=== PATIENT | female | born 1980 | race Caucasian/White ===

== ENCOUNTER 2016-08-23 06:58 | Inpatient (IN) | payer OTHER ==
[~2016-08-23] VITALS: Ht 154.9 cm; Wt 65.0 kg
--- NOTE | 2016-08-23 06:53 | PREOP HP ---
DATE OF SERVICE: 08/20/2016 PRINCIPAL DIAGNOSIS AND REASON FOR HER SURGERY: Left neck carotid body tumor. HISTORY OF PRESENT ILLNESS: This is a 36-year-old female who saw me about a month ago with a diagnosis of left carotid body tumor. A CT scan done at [place] showed a 4.5 x 3.5 x 2.5 left carotid body tumor. She has had no symptoms from that other than noticing the lump and she is admitted at this time for excision of the left carotid body tumor. MEDICATIONS: None. PAST SURGICAL HISTORY: No prior operations. PAST MEDICAL HISTORY: Negative. ALLERGIES: TYLENOL. REVIEW OF SYSTEMS: Only positive for history of smoking, nondiabetic. PHYSICAL EXAMINATION: GENERAL: Pleasant female in no acute distress. EXTREMITIES: 2+ carotids with a lump on the left neck. CARDIOVASCULAR: Regular heart rate. LUNGS: Chest is clear. NEUROLOGIC: She is neurologically intact. IMPRESSION: Left neck carotid body tumor. PLAN: Excision of the left neck carotid body tumor under general anesthetic. The nature of the procedure, the risk of bleeding, infection, nerve injury were discussed with the patient and she is agreeable to proceed. SADIE ELIZABETH MD DR: ALY/phil JOB#: [id number] / [id number]
[~2016-08-23 06:58] MED LIST: CEFAZOLIN 2GM PREMIX 50 ML IV PRN; CEFAZOLIN SODIUM 1 GM in IV NORMAL SALINE 500ML BAG 500 ML IRR ONE; HEPARIN S0DIUM 5,000 UNIT in IV RINGERS,LACTATED 500ML 500 ML IRR ONE
[2016-08-23] MEDS ORDERED: CEFAZOLIN PREMIX 2 GM/50 ML BAG. IV ONE (07:00)
[2016-08-23] MEDS ORDERED: ONDANSETRON PF 4 MG/2 ML VIAL. IV PRN ×2 (07:00→08:30)
[2016-08-23] MEDS ORDERED: PROCHLORPERAZINE 10 MG/2 ML VIAL. IV PRN (07:00)
[2016-08-23] MEDS ORDERED: LIDOCAINE 1% 1 ML SYRINGE. ID PRN (07:00)
[2016-08-23] MEDS ORDERED: IV RINGERS,LACTATED 1000ML 1,000 ML IV SCH (07:00)
[2016-08-23] MEDS ORDERED: MORPHINE SULFATE 2 MG/ML DISP.SYRIN. IV PRN (07:00)
[2016-08-23] MEDS ORDERED: HYDROMORPHONE 2 MG/ML VIAL. IV PRN (07:00)
[2016-08-23] MEDS ORDERED: LIDOCAINE 1% PF 30 ML VIAL. ONE (07:04)
[2016-08-23] MEDS ORDERED: SURGICEL FIBRILLAR 1X2 EACH. ONE (07:04)
[2016-08-23 07:33] LABS: NEG OBC UR NEG; POS OBC UR POS
[2016-08-23 07:35] LABS: BASO # 0.1 x10^3/uL (0.0-0.2); BASO % 1 % (0-3); EOS % 4 % (0-3); HEMATOCRIT 42.4 % (36.0-47.0); HEMOGLOBIN 14.3 g/dL (12.0-15.5); LYMPH # 3.1 x10^3/uL (1.0-4.8); LYMPH % 37 % (24-48); MEAN CORPUSCULAR HEMOGLOBIN 30 pg (25-35); MEAN CORPUSCULAR HGB CONC 34 g/dL (31-37); MEAN CORPUSCULAR VOLUME 88 fL (79-100); MONO % 10 % (0-9); NEUT % 48 % (31-73); PLATELET COUNT 279 x10^3/uL (140-400); RED BLOOD COUNT 4.83 x10^6/uL (3.50-5.40); RED CELL DISTRIBUTION WIDTH 13.1 % (11.5-14.5); WHITE BLOOD COUNT 8.4 x10^3/uL (4.0-11.0)
[2016-08-23 07:43] LABS: CALCIUM 8.9 mg/dL (8.5-10.1); CREATININE 0.8 mg/dL (0.6-1.0); GFR 82.1
[2016-08-23 07:46] LABS: PROTHROMBIN TIME PATIENT 12.6 SEC (11.7-14.0)
[2016-08-23] MEDS ORDERED: FENTANYL PF 100 MCG/2 ML VIAL. ONE (08:02)
[2016-08-23] MEDS ORDERED: LIDOCAINE 2% 100 MG/5 ML DISP.SYRIN. ONE (08:03)
[2016-08-23] MEDS ORDERED: ROCURONIUM 50 MG/5 ML VIAL. ONE (08:03)
[2016-08-23] MEDS ORDERED: DESFLURANE > 120 MINUTES IH ONE (08:03)
[2016-08-23] MEDS ORDERED: REMIFENTANIL 2 MG VIAL. IV ONE (08:03)
[2016-08-23] MEDS ORDERED: MIDAZOLAM HCL 2 MG/2 ML VIAL. ONE (08:03)
[2016-08-23] MEDS ORDERED: PROPOFOL 20 ML IV ONE (08:03)
[2016-08-23] MEDS ORDERED: DEXAMETHASONE SOD PHOS 20 MG/5 ML VIAL. ONE (08:04)
[2016-08-23] MEDS ORDERED: PROPOFOL 50 ML IV ONE ×2 (08:04→09:34)
[2016-08-23] MEDS ORDERED: ONDANSETRON PF 4 MG/2 ML VIAL. ONE (08:04)
[2016-08-23] MEDS ORDERED: NICARDIPINE HCL 25 MG/10 ML VIAL. IV ONE (08:06)
[2016-08-23] MEDS ORDERED: 0.9 % SODIUM CHLORIDE 10 ML DISP.SYRIN. IV PRN (08:30)
[2016-08-23] MEDS ORDERED: EPHEDRINE SULFATE 50 MG/ML VIAL. ONE (08:37)
[2016-08-23] MEDS ORDERED: EPHEDRINE PF IN SALINE 50 MG/5 ML DISP.SYRIN. IV ONE (08:42)
[2016-08-23] MEDS ORDERED: HEPARIN for IV BOLUS 10,000 UNIT/10 ML VIAL. ONE (08:43)
[2016-08-23] MEDS ORDERED: PHENYLEPHRINE in 0.9% NACL PF 1 MG/10 ML DISP.SYRIN. IV ONE (09:08)
--- NOTE | 2016-08-23 11:06 | PDOC ---
BRIEF OPERATIVE NOTE Date: Aug 23, 2016 Pre-Op Diagnosis Lt carotid body tumor Post-Op Diagnosis Same Procedure Performed Excision of lt carotid body tumor Surgeon Noel Larsen Anesthesia Type: General Blood Loss 400 Specimens Obtained Lt carotid body tumor Findings Large tumor Complications none SADIE LARSEN MD Aug 23, 2016 11:06
[2016-08-23] MEDS ORDERED: MORPHINE SULFATE 2 MG/ML DISP.SYRIN. IV ONE (11:15)
[2016-08-23] MEDS ORDERED: TRAMADOL 50 MG TABLET. PO PRN (11:15)
[2016-08-23] MEDS: FENTANYL PF 100 MCG/2 ML VIAL. IV PRN ×5 (11:16→19:25)
[2016-08-23 13:00] VITALS: BP 119/86
--- NOTE | 2016-08-23 13:29 | OP ---
DATE OF SURGERY: 08/23/2016 PREOPERATIVE DIAGNOSIS: Left neck carotid body tumor. POSTOPERATIVE DIAGNOSIS: Left neck carotid body tumor. PROCEDURE PERFORMED: Excision of left neck carotid body tumor. SURGEON: Abdiel Larsen MD. ANESTHETIC: General. INDICATIONS: This is a 36-year-old female with a left neck carotid body tumor. FINDINGS: This tumor obviously originated at the bifurcation area and there was a finger in that bifurcation that was fairly huge and then a larger finger that went alongside the internal carotid artery more distal in the neck posterolaterally. DESCRIPTION OF PROCEDURE: After general endotracheal anesthetic, prepping and draping, incision was made on the anterior border of the left sternocleidomastoid muscle, carried through platysma with cautery, bleeding controlled with cautery. Even after getting through the platysma layers, there started be fairly significant vascularity to all the tissue and crossing veins. The common carotid artery was identified, dissected out and encircled with a vessel loop, but in doing so, there was a lot of adventitial venous bleeding that had to be controlled with cautery or Hemoclips. Dissection was then continued more cephalad. The anterior facial vein divided between silk ties and then we began to see the extent of the tumor. We initiated fairly careful dissection for a while. The hypoglossal nerve was identified and this was preserved. The external carotid artery was identified, dissected out, encircled with vessel loop. This was then retracted medially to hopefully open up. The dissection was then ____ laterally at first. Again, considerable bleeding along the edges of the tumor because of its vascularity. Eventually, with blunt dissection, we were able to get around posteriorly and then laterally. I was able to dissect it off with blunt and sharp dissection and cautery dissection out of the bifurcation of the carotid arteries preserving both of course. Once the tumor was removed from the bifurcation area, the only residual area was the finger that went up very proximally and after retracting underneath the hypoglossal nerve, which was preserved in the digastric muscle, blunt dissection, we were able to get the tumor out from up there. Bleeding after that was controlled with either 6-0 Prolene suture ligatures or pressure or Fibrillar Surgicel and the cautery. The wound was irrigated profusely with Ancef solution. Some Fibrillar Surgicel packed around suture lines and hemostasis to be pretty good after some Fibrillar Surgicel and pressure. Then the area was irrigated one more time. Some fresh Fibrillar Surgicel packed up there. A 7 mm Omid-Sanon drain placed into the wound and brought through a separate stab incision. Incision was then closed with running 2-0 Vicryl for the platysma, subcuticular 4-0 Vicryl, Mastisol, Steri-Strips, sterile dressings were applied. The patient tolerated the procedure well and left the operating room in stable condition. ESTIMATED BLOOD LOSS: 400 mL. ABDIEL LARSEN MD DR: ALY/phil JOB#: [id number] / [id number]
[2016-08-23] MEDS: OXYCODONE IR 5 MG TABLET. PO PRN ×2 (13:44→19:24)
[2016-08-23 14:00] VITALS: BP 102/53
[2016-08-23 15:00] VITALS: BP 111/52
[2016-08-23] MEDS: IV NORMAL SALINE 1000ML BAG 1,000 ML IV SCH (15:30)
[2016-08-23 19:00] VITALS: BP 115/62
[2016-08-23 23:00] VITALS: BP 103/63
[2016-08-24] MEDS: OXYCODONE IR 5 MG TABLET. PO PRN ×2 (00:11→05:23)
[2016-08-24] MEDS: FENTANYL PF 100 MCG/2 ML VIAL. IV PRN ×2 (00:12→05:24)
[2016-08-24] MEDS: IV NORMAL SALINE 1000ML BAG 1,000 ML IV SCH ×2 (00:39→04:29)
[2016-08-24 03:00] VITALS: BP 106/57
--- NOTE | 2016-08-24 06:09 | PDOC ---
Provider Note Provider Note POD # 1 Post op excision of lt neck carotid body tumor Some incisional pain Minimal swelling , drain removed, slight weakness lt corner of mouth and numbness, weak voice Imp: Stable after removal of a large lt carotid body tumor Trauma ( during dissection ) but not transection of vagus, marginal mandibular , and hypoglossal nerve, all should recover with time Plan; Discharge home today SADIE ELIZABETH MD Aug 24, 2016 06:09
--- NOTE | 2016-08-24 06:11 | DISCH ---
DISCHARGE INSTRUCTIONS Condition on Discharge Condition on Discharge: Stable Activity After Discharge Activity Instructions for Disc: Resume previous activity Driving Instructions after Dis: Do not drive today Diet after Discharge Diet after Discharge: Cardiac Diet Texture: Regular Wound Incision Care Wound/Incision Care: Ice to area for comfort, Keep wound elevated, May get incision wet Contacting the DRBranden after DC Call your doctor for: Fever greater than 100 Follow-Up Follow up with: Noel Larsen [phone] in 10 days SADIE LARSEN MD Aug 24, 2016 06:11
--- NOTE | 2016-08-24 07:08 | DS ---
DATE OF DISCHARGE: 08/24/2016 PRINCIPAL DIAGNOSIS: Left carotid body tumor. OPERATION PERFORMED: On 08/23/2016, excision of left carotid body tumor. HISTORY OF PRESENT ILLNESS: This is a 36-year-old female with carotid body tumor on the left neck for excision. HOSPITAL COURSE: On the day of admission, she underwent general anesthetic for excision of what was found to be a very large left carotid body tumor which originated at the bifurcation of the left carotid arteries, but this tumor also extended posteriorly and laterally along the internal carotid artery well up underneath the digastric muscle anterior to the vagus nerve. The dissection was considerable, blunt dissection to remove the tumor. During the operation, the hypoglossal nerve was seen and preserved. She was observed overnight in the ICU because there were no beds on telemetry. The following morning, the vital signs were stable. She was awake and alert, voice was a little weak. She had slight weakness of the left corner of the mouth and she had complained of some numbness, the tongue seemed to be working pretty well. The drain was removed, very minimal swelling and she was neurologically intact and discharged. DISPOSITION: Home. Follow up in the office in a couple of weeks. Tramadol for pain as necessary. Resume usual activities, may shower tomorrow. Keep head of the bed elevated and continue ice pack left neck. We expect full recovery of all nerves as there was no evidence of transection of any of them, just the blunt entry from the dissection. SADIE ELIZABETH MD DR: ALY/phil JOB#: [id number] / [id number]
[2016-08-24] MEDS ORDERED: TRAMADOL 50 MG TABLET. PO PRN (07:15)
[2016-08-24] MEDS ORDERED: TRAM50TA PO (07:21)
--- NOTE | 2016-08-24 13:34 | PATHOLOGY ---
PATHOLOGY REPORT * * * * * * * * FINAL DIAGNOSIS: Left neck carotid body tumor, excision: - Carotid body paraganglioma. COMMENT: Sections of the left neck carotid body tumor show a carotid body paraganglioma. The tumor exhibits a fibrous pseudocapsule. The tumor is composed of chief cells having a classic nested (zellballen) arrangement. There are occasional tumor cells showing marked nuclear pleomorphism and nuclear pseudoinclusions. As with other endocrine neoplasms, malignancy cannot be predicted on the basis of morphology. Rather, malignancy of carotid body tumors is determined by the presence of metastases. Correlate clinically. (JPM:mgnena; d/t: 08/24/16) REPORT ELECTRONICALLY SIGNED BY: Isaiah Francis M.D. DATE/TIME: 08/24/2016 13:34 * * * * * * * * GROSS PATHOLOGY: The specimen is received in formalin labeled "Whit Combs, left carotid tumor," and additionally labeled on the requisition as, "left neck carotid body tumor". Received is a segment of pink-rodriguez, partially encapsulated soft tissue measuring 4.2 x 3.5 x 1.8 cm in greatest dimensions. The surgical margin is inked. Sectioning reveals pale rodriguez to pink-rodriguez, glistening cut surfaces throughout. The specimen is submitted representatively in cassettes A1 through A3. (CAA; 08/23/2016) INITIAL CPT CODE(S): 33893 Professional services performed by [facility] [place] [address] Technical services performed by [facility] at [address] [place] [address], [facility] [address] [address]. SPECIMEN(S) RECEIVED: A.Left neck carotid body tumor CLINICAL HISTORY: Left neck carotid body tumor PATIENT: WHIT COMBS /AGE: 902/24/1980 (Age: 36) PATIENT #: [id number] ALT CASE #: SPECIMEN COLLECTION DATE: 08/23/2016 SPECIMEN RECEIVED DATE: 08/23/2016 [facility] - [address] [place] [address] - PHONE: [phone] * * * END OF REPORT * * *
== END 2016-08-24 07:52 | disposition home or self-care (01) | DRG 42 ==
LOC: SURHIP 06:58 → 1 WEST ICU 12:50
PROVIDERS: ADMIT Specialist; ATTEND Specialist
PROC: 0WB60ZZ Excision of Neck, Open Approach (ICD-10-PCS; principal; 2016-08-23 08:30)
DX: D44.6 Neoplasm of uncertain behavior of carotid body (principal)
CPT/HCPCS: 36415; 80048; 81025; 85027; 85610; 85730; C1769; J0690; J0780; J1100; J2250; J2370; J2405; J2704; J3010; J7030; J7040; J7120

== ENCOUNTER 2016-11-02 06:05 | Day surgery (SDC) | payer OTHER ==
[~2016-11-02] VITALS: Ht 160 cm; Wt 64.9 kg
[~2016-11-02 06:05] MED LIST changes: -CEFAZOLIN 2GM PREMIX 50 ML IV PRN; -CEFAZOLIN SODIUM 1 GM in IV NORMAL SALINE 500ML BAG 500 ML IRR ONE; -HEPARIN S0DIUM 5,000 UNIT in IV RINGERS,LACTATED 500ML 500 ML IRR ONE; +TRAM50TA PO
[2016-11-02 06:38] LABS: NEG OBC UR NEG; POS OBC UR POS
[2016-11-02] MEDS ORDERED: PROCHLORPERAZINE 10 MG/2 ML VIAL. IV PRN (07:00)
[2016-11-02] MEDS ORDERED: IV RINGERS,LACTATED 1000ML 1,000 ML IV SCH (07:00)
[2016-11-02] MEDS ORDERED: ONDANSETRON PF 4 MG/2 ML VIAL. IV PRN (07:00)
[2016-11-02] MEDS ORDERED: MORPHINE SULFATE 2 MG/ML DISP.SYRIN. IV PRN (07:00)
[2016-11-02] MEDS ORDERED: fentaNYL PF VIAL 100 MCG/2 ML VIAL IV PRN ×2 (07:00)
[2016-11-02] MEDS ORDERED: LIDOCAINE 1% 1 ML SYRINGE. ID PRN (07:00)
[2016-11-02] MEDS ORDERED: HYDROmorphone 2 MG/ML VIAL IV PRN (07:00)
[2016-11-02] MEDS ORDERED: SILVER NITRATE STICK TP ONE (07:13)
[2016-11-02] MEDS ORDERED: PROPOFOL 20 ML IV ONE (07:15)
[2016-11-02] MEDS ORDERED: fentaNYL PF VIAL 100 MCG/2 ML VIAL ONE (07:15)
[2016-11-02] MEDS ORDERED: DEXAMETHASONE SOD PHOS 20 MG/5 ML VIAL. ONE (07:15)
[2016-11-02] MEDS ORDERED: MIDAZOLAM HCL/PF 2 MG/2 ML VIAL. ONE (07:15)
[2016-11-02] MEDS ORDERED: ONDANSETRON PF 4 MG/2 ML VIAL. ONE (07:15)
[2016-11-02] MEDS ORDERED: SCOPOLAMINE 1.5MG PATCH. TD ONE ×2 (07:22→08:00)
[2016-11-02] MEDS ORDERED: LIDOCAINE 1%/EPI 1:100,000 20 ML VIAL. ONE (07:36)
[2016-11-02] MEDS ORDERED: LIDOCAINE 1% PF 5 ML VIAL. ONE (07:50)
[2016-11-02] MEDS ORDERED: LIDOCAINE 2% PF Vial for OR 5 ML VIAL. ONE (07:50)
[2016-11-02] MEDS ORDERED: SEVOFLURANE 31 TO 60 MINUTES. IH ONE (07:50)
--- NOTE | 2016-11-02 08:11 | DISCH ---
DISCHARGE INSTRUCTIONS Condition on Discharge Condition on Discharge: Stable Activity After Discharge Activity Instructions for Disc: Activity as tolerated Lifting Instructions after Dis: No heavy lifting Driving Instructions after Dis: Do not drive today Diet after Discharge Diet after Discharge: Regular Contacting the DRBranden after DC Call your doctor for: Concerns you may have Follow-Up Follow up with: Dr. Allen in 1 week. MITCHELL ALLEN Jr, MD November 02, 2016 08:11
--- NOTE | 2016-11-02 08:11 | PDOC ---
BRIEF OPERATIVE NOTE Pre-Op Diagnosis Bartholin Duct Cyst Post-Op Diagnosis SAme Procedure Performed Marsupialization Surgeon Dr. Allen Anesthesia Type: General Blood Loss 10 ml Specimens Obtained none Findings 5cm Right labial Bartholin Duct Cyst Complications none Additional Remarks ptMITCHELL Pinzon Jr, MD November 02, 2016 08:11
[2016-11-02] MEDS ORDERED: OXYC-323 PO (08:27)
[2016-11-02 08:35] VITALS: BP 113/76
--- NOTE | 2016-11-02 09:40 | OP ---
DATE OF SURGERY: PREOPERATIVE DIAGNOSES: Bartholin duct cyst. POSTOPERATIVE DIAGNOSES: Bartholin duct cyst. PROCEDURE: Marsupialization. SURGEON: Issa Allen MD ANESTHESIA: GETA. ESTIMATED BLOOD LOSS: 10 mL. COMPLICATIONS: None. FINDINGS: A 5 cm right labial Bartholin duct cyst. SUMMARY: A 36-year-old female who was diagnosed with Bartholin duct cyst in the clinic. She was counseled on surgical treatment in the form of marsupialization as an outpatient surgery. The patient was counseled on risks, benefits and expectations and voiced a clear understanding to proceed. DESCRIPTION OF PROCEDURE: The patient was taken to surgery suite and placed in dorsal lithotomy position where she was prepped with Betadine solution and draped in sterile fashion. After adequate anesthesia, a weighted speculum was placed. The Bartholin duct cyst was identified. The superior pole was injected with 1% lidocaine with epinephrine in a linear fashion. A scalpel was utilized to make a linear incision down to the Bartholin duct cyst. The Bartholin duct cyst was then partially isolated with the aid of Metzenbaum scissors and hemostats. The Bartholin duct cyst was then incised and drained of purulent material and copiously irrigated with normal saline. The duct cyst was then sutured open using interrupted sutures in a circumferential manner with 3-0 chromic. The area was hemostatic. Weighted speculum was removed. Vaseline gauze was placed over the incision site. The patient was taken to the recovery room in stable condition. Sponge and needle counts correct x 3. ISSA ALLEN MD DR: SHIRLEY/phil JOB#: [id number] / [id number]
== END 2016-11-02 08:59 | disposition home or self-care (01) ==
LOC: SURG 06:05
PROVIDERS: ATTEND Obstetrics & Gynecology
DX: N75.0 Cyst of Bartholin's gland (principal); Z72.89 Other problems related to lifestyle; Z72.0 Tobacco use; F17.200 Nicotine dependence, unspecified, uncomplicated; Z87.39 Personal history of other diseases of the musculoskeletal system and connective tissue
CPT/HCPCS: 56440; 81025; J0690; J1100; J2250; J2405; J2704; J3490; J3010

== ENCOUNTER → 2017-03-15 | Outpatient (CLI) | payer OTHER ==
[~2017-03-15] MED LIST changes: +OXYC-323 PO
--- NOTE | 2017-03-15 09:05 | RAD ---
Examination: Ultrasound pelvis History: History of abnormal uterine bleeding graft comparison none available Technique: Transabdominal, transvaginal ultrasound examination pelvis Findings: Uterus measures 7.9 x 3.4 x 4.5 cm. Endometrium measures 8.7 mm in thickness. The right ovary measures 3.8 x 2.4 x 2.6 cm. Blood flow identified in the right ovary. The left ovary measures 2.8 x 1.4 x 2.5 cm. The left identified in the left ovary. Impression: Unremarkable visualized exam.
== END | disposition home or self-care (01) ==
LOC: US 07:36
PROVIDERS: ATTEND Obstetrics & Gynecology
DX: Z01.419 Encounter for gynecological examination (general) (routine) without abnormal findings (principal); N93.9 Abnormal uterine and vaginal bleeding, unspecified
CPT/HCPCS: 76830; 76856

== ENCOUNTER → 2021-06-13 | Outpatient (CLI) | payer OTHER ==
[~2021-06-13] MED LIST changes: -OXYC-323 PO; +OXYC1TAB15 PO
== END ==
LOC: LAB 14:17
PROVIDERS: ATTEND Internal Medicine Pulmonary Disease
DX: R05.9 Cough, unspecified (principal); R50.9 Fever, unspecified; R11.2 Nausea with vomiting, unspecified; R19.7 Diarrhea, unspecified; Z20.822 Contact with and (suspected) exposure to COVID-19
CPT/HCPCS: U0003; U0005